=== PATIENT | female | born 1980 | race Caucasian/White ===

== ENCOUNTER 2021-02-21 08:22 | Emergency (ER) | payer BC, SELFPAY ==
[2021-02-21 08:43] VITALS: BP 144/94; PULSE 90; RESP 18; TEMP 36.9; O2SAT 99
[2021-02-21 08:45] VITALS: BP 144/94; PULSE 90; RESP 18; TEMP 36.9; O2SAT 99
--- NOTE | 2021-02-21 08:50 | ED.GENADULT ---
HPI - General Adult General Chief complaint: Abdominal Pain Stated complaint: Stomach issues Time Seen by Provider: 02/21/21 08:42 Source: patient and RN notes reviewed Mode of arrival: ambulatory Limitations: no limitations History of Present Illness HPI narrative: Natty is a 40-year-old female patient who ambulated into the [facility]. Patient states she has a 4-day history of diarrhea. Patient states on Saturday she had nausea vomiting and diarrhea. Vomiting ended on Saturday and she has just had diarrhea since. Patient states she is had no diarrhea since 2 AM. She has been treating it with Imodium [id number]. Patient states she ate fried chicken and tacos last night and then had another bout of diarrhea. Patient states she is staying well-hydrated. Patient states she has mild flank pain. MD complaint: diarrhea Related Data Home Medications Medication Instructions Recorded Confirmed No Home Medications 02/21/21 02/21/21 Allergies Allergy/AdvReac Type Severity Reaction Status Date / Time No Known Allergies Allergy Verified 02/21/21 08:44 Review of Systems Review of Systems: CONSTITUTIONAL: Denies body aches, fever, chills, or sweats. EYES: Denies visual changes, redness, or discharge. ENT: Denies rhinorrhea, congestion, sore throat, or otalgia. CARDIOVASCULAR: Denies chest pain, palpitations, or edema. RESPIRATORY: Denies cough or dyspnea. GASTROINTESTINAL: Denies abdominal pain, nausea, vomiting, + diarrhea. GENITOURINARY: Denies dysuria or hematuria. SKIN: Denies rash, itching, or wounds. MUSCULOSKELETAL: Denies back pain, joint pain, or myalgia. NEUROLOGIC: Denies headache, numbness, tingling, or weakness. PSYCH: Denies depression or anxiety. All systems reviewed & are unremarkable except as noted in HPI and below PMFSH Comments At time of signature, I have reviewed and agree with nursing past medical, surgical, social and family history unless otherwise noted. Please see nursing chart for further information. There is no relevant family history pertinent to the presenting complaint Exam Narrative: GENERAL: Well-appearing, well-nourished, and in no acute distress. HEAD: Normocephalic, atraumatic. EYES: EOMI. No redness or drainage. Conjunctivae normal. ENT: Mucous membranes pink and moist. Nares clear. No rhinorrhea. Throat normal. Uvula midline. NECK: Normal AROM. Supple. CHEST: No respiratory distress. Clear to auscultation.. ABDOMEN: Soft, nontender, nondistended, normal active bowel sounds. NO rebound tenderness more concerned about her blood pressure than her diarrhea noted on exam. MUSCULOSKELETAL: No bony tenderness. EXTREMITIES: Normal range of motion. No edema. SKIN: Warm, dry, no rash. Capillary refill normal. Normal skin turgor. NEURO: No focal deficits. Alert and oriented x3. Gait steady. PSYCH: Normal affect. No signs of depression or anxiety. Course Vital Signs Vital signs: Vital Signs Temperature 36.9 C 02/21/21 08:43 Pulse Rate 90 02/21/21 08:43 Respiratory Rate 18 02/21/21 08:43 Blood Pressure 144/94 H 02/21/21 08:43 Pulse Oximetry 99 02/21/21 08:43 Temperature 36.9 C 02/21/21 08:45 Pulse Rate 90 02/21/21 08:45 Respiratory Rate 18 02/21/21 08:45 Blood Pressure 144/94 H 02/21/21 08:45 Pulse Oximetry 99 02/21/21 08:45 Reviewed. Pt has been instructed to follow up with her PCP regarding her elevated blood pressure today. Medical Decision Making MDM Narrative Medical decision making narrative: Gastroenteritis patient started with nausea vomiting diarrhea on Saturday. Diarrhea has continued. Patient's mucous membranes are pink and moist. Patient is able to eat and keep food down. Patient has not had a diarrheal stool since 2 AM. Patient will be instructed to follow-up with her primary care doctor in 7 to 10 days for continued complaints or sooner for abdominal pain or continued diarrhea. Patient will be instructed to fo
== END 2021-02-21 09:01 | disposition home or self-care (01) ==
PROVIDERS: Emergency Provider Nurse Practitioner Family
DX: R19.7 Diarrhea, unspecified (principal); E28.2 Polycystic ovarian syndrome
CPT/HCPCS: 99211; G0463

== ENCOUNTER 2022-02-19 11:49 | Emergency (ER) | payer OTHER, SELFPAY ==
--- NOTE | ~2022-02-19 | XR_ITS ---
EXAMINATION: XR abdomen/kub 1V DATE: 02/19/2022 13:02 INDICATION: Bilateral abdominal and flank pain. TECHNIQUE: A supine view of the abdomen on 4 radiographs was obtained. COMPARISON: None. FINDINGS: There are no dilated loops of bowel. There is a small volume of stool in the colon. Calcifi cations in the pelvis are likely phleboliths. Surgical clips in the right upper quadrant are likely f rom cholecystectomy. IMPRESSION: 1. Normal bowel gas pattern. Reviewed, dictated and finalized at location A. ITION ASSEMBLY MACHINE OPERATOR
[2022-02-19 11:58] VITALS: BP 116/63; PULSE 88; RESP 20; TEMP 36.4; O2SAT 99
--- NOTE | 2022-02-19 12:26 | ED.GENADULT ---
HPI - General Adult General Chief complaint: Abdominal Pain Stated complaint: side pains that radiate to back Time Seen by Provider: 02/19/22 12:22 Source: patient Mode of arrival: ambulatory Limitations: no limitations History of Present Illness HPI narrative: 41-year-old female presents with concern for one-month history of intermittent bilateral abdominal and flank pain. She reports pain is been getting worse. She reports pain is intermittent and has no relieving or exacerbating factors. She denies nausea, vomiting, diarrhea, constipation. Reports she has PCOS she has irregular menstrual cycles, she reports there has been no change in her typical menstrual cycles. She has had a appendectomy and a cholecystectomy in the past. She denies dysuria, urgency, frequency, hematuria. She denies fever, body aches, chills, sweats. MD complaint: Abdominal pain and flank pain Related Data Allergies Allergy/AdvReac Type Severity Reaction Status Date / Time No Known Allergies Allergy Verified 02/19/22 12:07 Review of Systems Review of Systems: CONSTITUTIONAL: Denies malaise, chills, sweats, or fever. CARDIOVASCULAR: Denies chest pain, palpitations, or edema. RESPIRATORY: Denies cough or dyspnea. GASTROINTESTINAL: Reports bilateral lower abdominal pain. Denies nausea, vomiting, diarrhea, bloody, or mucous stools. GENITOURINARY: Denies dysuria or hematuria. Reports bilateral flank pain SKIN: Denies rash or itching. MUSCULOSKELETAL: Denies back pain, joint pain, or myalgia. NEUROLOGIC: Denies numbness, weakness, or headache. PSYCHIATRIC: Denies anxiety or depression. All systems reviewed & are unremarkable except as noted in HPI and below PMFSH Comments At time of signature, agree with nursing past medical, surgical, social and family history. There is no relevant family history pertinent to the presenting complaint Exam Narrative: GENERAL: Well-appearing, well-nourished, and in no acute distress. HEAD: Normocephalic, atraumatic. EYES: PERRLA, sclera clear, and EOMI. ENT: Nares clear. Mucous membranes moist. NECK: Supple. No lymphadenopathy. No jugular venous distension, thyromegaly, or carotid bruits. Carotids were easily palpable bilaterally. CHEST: No respiratory distress. Clear to auscultation. No bony deformities, no asymmetry. Speaks in full sentences. HEART: Regular rate and rhythm. No murmur heard. Normal peripheral pulses. ABDOMEN: Soft, nontender, nondistended, normal active bowel sounds, no palpable masses. EXTREMITIES: Normal range of motion. No edema. Normal strength and sensation. SKIN: Warm, dry, no visible rash. NEURO: Alert and oriented x3. No focal deficits. Cranial nerves II through XII grossly intact PSYCH: Normal mood and affect Course Course Emergency Course: Discussed limited diagnostic capability at the [facility] for patient's symptoms. Discussed x-ray findings, discussed I cannot rule out nephrolithiasis. Offered transfer to the emergency room for further evaluation of patient's symptoms. Patient is nontender, nontoxic appearing. Patient denied transfer to emergency department should prefer to follow up outpatient. Patient is aware of, understands and agrees to treatment plan. Anticipatory guidance given. Patient agrees to follow-up as directed and is aware of reasons to seek care at the emergency department. Portions of this record may have been created with voice recognition software Level of Care: Express Care Visit Vital Signs Vital signs: Vital Signs Temperature 97.5 F L 02/19/22 11:58 Pulse Rate 88 02/19/22 11:58 Respiratory Rate 20 02/19/22 11:58 Blood Pressure 116/63 02/19/22 11:58 Pulse Oximetry 99 02/19/22 11:58 Oxygen Delivery Room Air 02/19/22 11:58 Temperature 97.5 F L 02/19/22 11:58 Pulse Rate 88 02/19/22 11:58 Respiratory Rate 20 02/19/22 11:58 Blood Pressure 116/63 02/19/22 11:58 Pulse Oximetry 99 02/19/22 11:58 Oxygen Delivery Room Air 1
== END 2022-02-19 13:27 | disposition home or self-care (01) ==
PROVIDERS: Emergency Provider Nurse Practitioner
DX: R10.9 Unspecified abdominal pain (principal); E28.2 Polycystic ovarian syndrome
CPT/HCPCS: 74018; 81003; 99213; G0463

== ENCOUNTER 2022-05-02 16:27 | Emergency (ER) | payer OTHER, SELFPAY ==
--- NOTE | ~2022-05-02 | XR_ITS ---
EXAMINATION: XR thoracic spine 2V DATE: 05/02/2022 17:26 INDICATION: Mid back pain. TECHNIQUE: 3 views of thoracic spine were obtained. COMPARISON: None. FINDINGS: There is 4 degrees levocurvature of thoracic lumbar spine. Vertebral body heights are linda l. There is mildly decreased disc height at many levels in thoracic spine. There are endplate osteoph ytes at most levels. Surgical clips in the right upper quadrant are likely from cholecystectomy. IMPRESSION: 1. Mild thoracic spondylosis. Reviewed, dictated and finalized at location A. IC PROFESSOR
[2022-05-02 16:35] VITALS: BP 149/89; PULSE 95; RESP 16; TEMP 36.3; O2SAT 99
--- NOTE | 2022-05-02 17:13 | ED.BACK ---
HPI - Back Pain/Injury General Chief Complaint: Back Pain/Injury Stated Complaint: Back Pain Time Seen by Provider: 05/02/22 17:14 Source: patient Mode of arrival: ambulatory Limitations: no limitations History of Present Illness HPI Narrative: 41-year-old female presents with complaint of mid back pain for approximately 2 weeks. Getting progressively worse. Reports that pain is between her shoulder blades. Feels good at night when she is laying in bed and when she 1st gets up in the morning but when she returns to work pain comes back. Patient reports that she is standing, bending over climbing up and down ladders 90% of her time while at work. Is taking ibuprofen and Tylenol to treat her pain. All systems reviewed and negative except as noted above. Related Data Allergies Allergy/AdvReac Type Severity Reaction Status Date / Time No Known Allergies Allergy Verified 05/02/22 16:40 Review of Systems Review of Systems: CONSTITUTIONAL: Denies fever, chills, or sweats. EYES: Denies visual changes, redness, or discharge. ENT: Denies rhinorrhea, congestion, sore throat, or otalgia. CARDIOVASCULAR: Denies chest pain, palpitations, or edema. RESPIRATORY: Denies cough or dyspnea. GASTROINTESTINAL: Denies abdominal pain, nausea, vomiting, or diarrhea. GENITOURINARY: Denies dysuria or hematuria. SKIN: Denies rash or itching. MUSCULOSKELETAL: Reports thoracic back pain. Denies joint pain, or myalgia. NEUROLOGIC: Denies headache, numbness, or weakness. PSYCHIATRIC: Denies anxiety or depression. All other systems reviewed are negative, except as documented in HPI. PMFSH Comments At time of signature, agree with nursing past medical, surgical, social and family history. There is no relevant family history pertinent to the presenting complaint. Exam Narrative: GENERAL: This is a well-nourished, well-developed patient, in no apparent distress. HEAD: normocephalic, atraumatic. EYES: PERRL. Sclera clear/white. Vision is grossly intact. EARS: External ears normal NOSE: External nose normal NECK: Neck supple, non-tender without lymphadenopathy, masses or thyromegaly. CARDIOVASCULAR: Regular rate and rhythm without murmurs, gallops, or rubs. RESPIRATORY: Clear to auscultation. Breath sounds equal bilaterally. No wheezes, rales, or rhonchi. SKIN: warm, Dry, intact with no suspicious lesions or rash, good texture and turgor. NEURO: awake, alert, and oriented to person, place and time. There were no obvious focal neurologic abnormalities. EXTREMITIES: No joint tenderness, effusion, or edema noted. BACK: tenderness on palapation of thoracic spine. no muscular tenderness. Course Course Level of Care: Express Care Visit Vital Signs Vital signs: Vital Signs Temperature 36.3 C L 05/02/22 16:35 Pulse Rate 95 05/02/22 16:35 Respiratory Rate 16 05/02/22 16:35 Blood Pressure 149/89 H 05/02/22 16:35 Pulse Oximetry 99 05/02/22 16:35 Oxygen Delivery Room Air 05/02/22 16:35 Temperature 36.3 C L 05/02/22 16:35 Pulse Rate 95 05/02/22 16:35 Respiratory Rate 16 05/02/22 16:35 Blood Pressure 149/89 H 05/02/22 16:35 Pulse Oximetry 99 05/02/22 16:35 Oxygen Delivery Room Air 05/02/22 16:35 reviewed MDM - Back Pain/Injury MDM Narrative Medical decision making narrative: discussed x-ray results with patient. Will prescribe Medrol Dosepak for arthritic inflammation. Recommend she follow up primary care physician for further treatment of her pain. Patient is aware of diagnosis, understands and agrees to treatment plan. Anticipatory guidance given. Patient agrees to follow-up as directed and is aware of reasons to seek care at the emergency department. Portions of this record may have been created with voice recognition software Imaging Data My impression: agree with radiologist Radiologist's impression: EXAMINATION: XR thoracic spine 2V DATE: 05/02/2022 17:26 INDICATION: Mid back
== END 2022-05-02 17:49 | disposition home or self-care (01) ==
PROVIDERS: Emergency Provider Nurse Practitioner Family; PCP Emergency Medicine
DX: M41.84 Other forms of scoliosis, thoracic region (principal); M47.814 Spondylosis without myelopathy or radiculopathy, thoracic region; E28.2 Polycystic ovarian syndrome
CPT/HCPCS: 72070; 99213; G0463

== ENCOUNTER 2022-06-06 11:11 | Emergency (ER) | payer OTHER, SELFPAY ==
[2022-06-06 11:22] VITALS: BP 142/89; PULSE 105; RESP 20; TEMP 36.4; O2SAT 99
--- NOTE | 2022-06-06 11:25 | ED.NAVMDI ---
HPI - Nausea/Vomiting/Diarrhea General Stated complaint: Diarrhea Source: patient and RN notes reviewed History of Present Illness HPI Narrative: 41-year-old female presents urgent care with complaints bloating, diarrhea, and fell burps. Reports bilateral abdominal cramping. patient states this all started Saturday after eating a sandwich. Patient states she thought she was getting better yesterday but symptoms returned yesterday. Patient denies any vomiting but reports nausea at times. It to starting Trulicity last . Denies any fevers or chills, chest pain, shortness of breath, or dysuria. Some parts of this dictation were generated by voice recognition software and may contain typographical and/or grammatical inaccuracies. Related Data Home Medications Medication Instructions Recorded Confirmed atorvastatin 40 mg tablet 40 mg DAILY 06/06/22 06/06/22 dulaglutide 0.75 mg/0.5 mL 0.75 mg subcut WEEKLY 06/06/22 06/06/22 subcutaneous pen injector (Trulicity) lisinopril 20 mg tablet 20 mg DAILY 06/06/22 06/06/22 metformin 500 mg tablet 500 mg DAILY 06/06/22 06/06/22 Allergies Allergy/AdvReac Type Severity Reaction Status Date / Time No Known Allergies Allergy Verified 06/06/22 11:32 Review of Systems Review of Systems: CONSTITUTIONAL: Denies fever, chills, or sweats. EYES: Denies visual changes, redness, or discharge. ENT: Denies otalgia and sore throat CARDIOVASCULAR: Denies chest pain, palpitations, or edema. RESPIRATORY: Denies cough or dyspnea. GASTROINTESTINAL: Diarrhea, belching nausea GENITOURINARY: Denies dysuria or hematuria. SKIN: Denies rash or itching. MUSCULOSKELETAL: Denies back pain, joint pain, or myalgia. NEUROLOGIC: Denies headache, numbness, or weakness. PMFSH Comments At the time of my signature, I reviewed and agree with the nursing past medical, surgical, social, and family history. There is no relevant family history pertinent to the patient complaint. Exam Narrative: GENERAL: This is a well-nourished, well-developed patient, in no apparent distress. HEAD: normocephalic, atraumatic. EYES: PERRL. Sclera clear/white. Vision is grossly intact. EARS: External ears normal, auditory canals clear and without drainage, TMs normal without perforation. Hearing grossly intact. NOSE: External nose normal with no obvious nasal discharge, nares without redness, no rhinorrhea. THROAT: Mucous membranes moist, posterior pharynx clear. NECK: Neck supple, non-tender without lymphadenopathy, masses or thyromegaly. CARDIOVASCULAR: Regular rate and rhythm without murmurs, gallops, or rubs. RESPIRATORY: Clear to auscultation. Breath sounds equal bilaterally. No wheezes, rales, or rhonchi. GASTROINTESTINAL: Abdomen soft, non-tender, nondistended. Bowel sounds are active. No hepato-splenomegaly, or palpable masses. No guarding. SKIN: warm, intact with no suspicious lesions or rash, good texture and turgor. NEURO: awake, alert, and oriented to person, place and time. There were no obvious focal neurologic abnormalities. Course Course Level of Care: Express Care Visit Vital Signs Vital signs: Vital Signs Temperature 97.6 F 06/06/22 11:22 Pulse Rate 105 H 06/06/22 11:22 Respiratory Rate 20 06/06/22 11:22 Blood Pressure 142/89 H 06/06/22 11:22 Pulse Oximetry 99 06/06/22 11:22 Oxygen Delivery Room Air 06/06/22 11:22 Temperature 97.6 F 06/06/22 11:22 Pulse Rate 105 H 06/06/22 11:22 Respiratory Rate 20 06/06/22 11:22 Blood Pressure 142/89 H 06/06/22 11:22 Pulse Oximetry 99 06/06/22 11:22 Oxygen Delivery Room Air 06/06/22 11:22 Reviewed MDM - Nausea/Vomiting/Diarrhea MDM Narrative Medical decision making narrative: You've been diagnosed with a viral illness that would not require antibiotics at this time. Get plenty of fluids. You may take Imodium for diarrhea. If you would like to eat food, you should follow the BRAT diet (bananas, rice, applesauce, and toa
== END 2022-06-06 11:42 | disposition home or self-care (01) ==
PROVIDERS: Emergency Provider Nurse Practitioner Family; PCP Internal Medicine
DX: K52.9 Noninfective gastroenteritis and colitis, unspecified (principal)
CPT/HCPCS: 99211; G0463

== ENCOUNTER 2023-03-21 13:37 | Emergency (ER) | payer OTHER, SELFPAY ==
[2023-03-21 13:45] VITALS: BP 159/98; PULSE 96; RESP 20; TEMP 36.7; O2SAT 98
--- NOTE | 2023-03-21 13:45 | ED.DENTAL ---
HPI - Dental/Oral General Chief complaint: Dental/Oral Stated complaint: tooth/ear pain Source: patient and RN notes reviewed Mode of arrival: ambulatory Limitations: no limitations History of Present Illness HPI Narrative: Patient is a 42-year-old female who presents to the [facility] with complaints of right lower dental pain. Patient states that she has had a hole in her back molar for over a year. However, over the last few months she has had pain to the to and believes that it is infected. She states that she does not currently have dental insurance until the of the year. Her dentist is at [facility]. Denies trismus. Denies trouble swallowing. Denies fever. Related Data Allergies Allergy/AdvReac Type Severity Reaction Status Date / Time No Known Allergies Allergy Verified 03/21/23 13:54 Review of Systems Review of Systems: CONSTITUTIONAL: Denies fever, chills, or sweats. EYES: Denies visual changes, redness, or discharge. ENT: Denies otalgia and sore throat MOUTH: Reports dental pain. CARDIOVASCULAR: Denies chest pain, palpitations, or edema. RESPIRATORY: Denies cough or dyspnea. GASTROINTESTINAL: Denies abdominal pain, nausea, vomiting, or diarrhea. GENITOURINARY: Denies dysuria or hematuria. SKIN: Denies rash or itching. MUSCULOSKELETAL: Denies back pain, joint pain, or myalgia. NEUROLOGIC: Denies headache, numbness, or weakness. Pertinent positives per HPI. PMFSH Comments At the time of my signature, I reviewed and agree with the nursing past medical, surgical, social, and family history. There is no relevant family history pertinent to the patient complaint. Exam Narrative: GENERAL: This is a well-nourished, well-developed patient, in no apparent distress. HEAD: normocephalic, atraumatic. EYES: PERRL. Sclera clear/white. Vision is grossly intact. EARS: External ears normal, auditory canals clear and without drainage, TMs normal without perforation. Hearing grossly intact. NOSE: External nose normal with no obvious nasal discharge, nares without redness, no rhinorrhea. THROAT: Mucous membranes moist, posterior pharynx clear. MOUTH: Dental caries, gingival swelling, no abscess. NECK: Neck supple, non-tender without lymphadenopathy, masses or thyromegaly. CARDIOVASCULAR: Regular rate and rhythm without murmurs, gallops, or rubs. RESPIRATORY: Clear to auscultation. Breath sounds equal bilaterally. No wheezes, rales, or rhonchi. GASTROINTESTINAL: Abdomen soft, non-tender, nondistended. Bowel sounds are active. No hepato-splenomegaly, or palpable masses. No guarding. SKIN: warm, intact with no suspicious lesions or rash, good texture and turgor. NEURO: awake, alert, and oriented to person, place and time. There were no obvious focal neurologic abnormalities. EXTREMITIES: No clubbing, cyanosis, or edema. No joint tenderness, effusion, or edema noted. BACK: Nontender without deformity or crepitance. No flank tenderness. Course Course Level of Care: Express Care Visit Vital Signs Vital signs: Reviewed MDM - Dental/Oral MDM Narrative Medical decision making narrative: Take antibiotic until it's gone. Brushing teeth at least twice daily with gentle flossing. Avoid temperature extremes when you eat. Salt gargle to rinse your mouth after every meal You may apply ice to the face to reduce pain/swelling. For pain, you may take: Tylenol 650-1000mg by mouth every 4-6 hours. Do not exceed 4000mg in 24 hours. Advil (Ibuprofen) 600 mg by mouth every 6 hours. Do not exceed 2400mg in 24 hours. Also, recommend regular dental check up one-two times a year to prevent tooth decay and other periodontal disease. Follow-up with the dentist as soon as possible. See the list provided Differential Diagnosis Differential diagnosis: Likely dental caries, toothache and dental abscess Critical Care Time Critical Care Time Critical Care Time: No Discharge Plan Discharge Clinical Impression: Dental caries
== END 2023-03-21 14:05 | disposition home or self-care (01) ==
PROVIDERS: Emergency Provider Nurse Practitioner
DX: K02.9 Dental caries, unspecified (principal); I10 Essential (primary) hypertension; E28.2 Polycystic ovarian syndrome; E11.9 Type 2 diabetes mellitus without complications
CPT/HCPCS: 99213; G0463